=== PATIENT | male | born 1985 | race Caucasian/White ===

== ENCOUNTER 2024-03-22 04:14 | Day surgery (SDC) | payer OTHER ==
[2024-03-22] VITALS (242 sets, daily range): BP systolic 82–155; BP diastolic 41–103
[~2024-03-22] VITALS: Ht 177.8 cm; Wt 86.7 kg
--- NOTE | 2024-03-22 07:00 | NUR ---
Arrival & Pre-treatment Patient arrived to the ANR suite, identification and demographics confirmed. Patient to room 7, AAO, ambulatory, vitals obtained, ID/allergy/fall bands placed, changed into hospital gown, KELLY hose, and non-slip socks. Procedure and timeline explained for treatment and discharge. All questions answered and the patient presents no concerns at this time. V/S assessed, call light is near. Dr. Luna telephoned with patient intake information including usage, dose, last dose/time taken and initial vital signs. Patient history and allergies reviewed with MD. Orders received for 10mg PO Valium and 0.2mg PO Clonidine now. Will reassess per protocol and update MD with assessment and vitals.
[2024-03-22] MEDS ORDERED: LACTATED RINGER'S 1,000 ML IV PRN ×3 (07:30→19:00)
[2024-03-22] MEDS ORDERED: FAMOTIDINE 20 MG/TAB PO PRN (07:30)
[2024-03-22] MEDS ORDERED: diazePAM 5 MG/TAB PO PRN ×2 (07:30→08:30)
[2024-03-22] MEDS ORDERED: cloNIDine HCL 0.1 MG/TAB PO PRN (07:30)
[2024-03-22] MEDS ORDERED: CYANOCOBALAMIN 500 MCG/TAB ( B12) PO PRN (07:30)
[2024-03-22] MEDS ORDERED: ALBUTEROL SULFATE 2.5 MG VIAL IN PRN (07:30)
[2024-03-22] MEDS ORDERED: PANTOPRAZOLE SODIUM Sesquihydr 40 MG/TAB PO PRN (07:30)
[2024-03-22] MEDS ORDERED: SCOPOLAMINE 1.5 MG DIS TD PRN (07:30)
--- NOTE | 2024-03-22 07:45 | NUR ---
Patient medicated per MD orders. In addition to Clonidine and Valium, patient received 1000 mcg B12 PO, 20 mg Pepcid PO, and Scopolamine TD patch. Medication indication and education provided prior to adminstration.
[2024-03-22] MEDS ORDERED: ASCORBIC ACID 4,000 MG in SODIUM CHLORIDE 0.9% 1,000 ML IV SCH (08:00)
[2024-03-22] MEDS ORDERED: TESTOST CYP100 MG/ML IM (08:55)
--- NOTE | 2024-03-22 09:00 | NUR ---
Patient resting comfortably in bed. Easily aroused, maintains focus, and drifts back to sleep. No signs of active withdrawal or distress noted at this time. Continuous SPO2, rhythm, and respiratory monitoring initiated. IVF @ 250 mL/HR, room air, VSS.
[2024-03-22 09:44] LABS: BASO% 0.5 % (0-3); EOS% 7.3 % (0-8); HEMATOCRIT 40.9 % (39.0-50.0); LYMPH% 37.5 % (15-41); MEAN CELL VOLUME 91.7 fL CALC (80.0-100.0); MEAN CORPUSCULAR HGB 31.4 pG CALC (26.0-32.0); MEAN CORPUSCULAR HGB CONC 34.2 g/dL CAL (32.0-36.0); MONO% 9.1 % (2-13); NEUT# 2.92 thou/uL (1.82-7.42); NEUT% 45.6 % (42-76); RED BLOOD COUNT 4.46 mill/uL (4.70-6.10); RED CELL DISTRI WIDTH 12.6 % (11.5-15.5)
[2024-03-22 10:00] LABS: ALBUMIN 3.4 g/dL (3.2-5.0); BILIRUBIN, TOTAL 0.6 mg/dL (0.2-1.3); CREATININE 0.7 mg/dL (0.7-1.3); POTASSIUM 4.5 mmol/l (3.5-5.1); TOTAL PROTEIN 6.6 g/dL (6.3-8.2)
[2024-03-22] MEDS ORDERED: LIDOCAINE HCL 1% (10MG/ML) 100 MG/10 ML MDV IV PRN (10:15)
[2024-03-22] MEDS ORDERED: MAGNESIUM SULFATE HEPTAHYDRATE 100 ML IV PRN (10:15)
[2024-03-22] MEDS ORDERED: PROPOFOL 100 ML IV PRN (10:15)
[2024-03-22] MEDS ORDERED: cloNIDine HYDROCHLORIDE 100 MCG/ML 10 ML INJ IV PRN (10:15)
[2024-03-22] MEDS ORDERED: ROCURONIUM BROMIDE 10 MG/ML 5ML VIAL IV PRN (10:15)
[2024-03-22] MEDS ORDERED: OCTREOTIDE ACETATE 100 MCG/VIAL SDV SC PRN (10:15)
[2024-03-22] MEDS ORDERED: STERILE WATER FOR IRRIGATION 1,000 ML BTL IR PRN (10:15)
[2024-03-22] MEDS ORDERED: THIAMINE HCL 100 MG/ML 2ML VIAL IV PRN (10:15)
[2024-03-22] MEDS ORDERED: NALTREXONE HCL 50 MG/TAB VT PRN (10:15)
[2024-03-22] MEDS ORDERED: diazePAM 5 MG/TAB VT PRN (10:15)
[2024-03-22] MEDS ORDERED: PROPOFOL 10 MG/ML 100ML VIAL IV PRN (10:15)
[2024-03-22] MEDS ORDERED: DiphenhydrAMINE HCL 50 MG/ML SDV IV PRN (10:15)
[2024-03-22] MEDS ORDERED: DEXAMETHASONE SODIUM PHOSPHATE PF 10 MG/ML SDV IV PRN ×2 (10:15→19:00)
[2024-03-22] MEDS ORDERED: ONDANSETRON HCl 4 MG/2 ML SDV IV PRN ×3 (10:15→19:00)
[2024-03-22] MEDS ORDERED: cloNIDine HCL 0.1 MG/TAB VT PRN (10:15)
[2024-03-22] MEDS ORDERED: MIDAZOLAM HCL 2 MG/2 ML VIAL IV PRN (10:15)
[2024-03-22] MEDS ORDERED: LIDOCAINE HCL 1% (10MG/ML) 100 MG/10 ML MDV VT PRN ×2 (10:15)
[2024-03-22] MEDS ORDERED: SUCCINYLCHOLINE CHLORIDE 20 MG/ML 10ML VIAL IV PRN (10:15)
[2024-03-22] MEDS ORDERED: PHENYLEPHRINE HCL 10 MG/ML VIAL ONE (10:19)
[2024-03-22] MEDS ORDERED: SODIUM CHLORIDE 0.9% 250 ML IV ONE (10:22)
--- NOTE | 2024-03-22 10:30 | NUR ---
Patients vital signs within pre-treatment parameters for 1.5 hour recheck. No indication for additional Valium or Clonidine as patient is resting comfortably and vital signs are within range.
[2024-03-22] MEDS ORDERED: POTASSIUM CHLORIDE 10 MEQ/50 ML BAG IV PRN (10:45)
--- NOTE | 2024-03-22 10:55 | NUR ---
Induction Note Time out performed at 1050. Patient placed on monitors, Opal hugger, bilateral wrist restraints applied for ET tube protection. Versed 5mg given IV push at 1055 Tourniquet applied to RT arm Lidocaine 100mg given at 1056 IV push followed by Rocoronium 10mg at 1057 IV push and held for 90 seconds. Propofol bolus of 120mg given at 1059 IV push. Succinylcholine 80mg given IV push at 1100. Smooth intubation with 7.5 ETT. Positive CO2. Positive Auscultation for air exchange. Patient placed on ventilator for spontaneous ventilation. Placed on Propofol IV drip at 1101. OG inserted. Positive air on auscultation. Positive gastric content. Stomach washed at this time.
--- NOTE | 2024-03-22 11:15 | NUR ---
OG close note Stomach washed at this time. Naltrexone 50 mg with Clonidine 0.1 mg via OG tube. OG will be clamped for 45 minutes.
--- NOTE | 2024-03-22 12:00 | NUR ---
OG open note OG open at this time. Gastric content draining into drainage bag. OG to drain for 45 minutes. Propofol will be titrated down based on patient.
--- NOTE | 2024-03-22 12:45 | NUR ---
OG close note Stomach washed at this time. Naltrexone 50 mg with Clonidine 0.2 mg via OG tube. OG will be clamped for 45 minutes.
--- NOTE | 2024-03-22 14:15 | NUR ---
OG close note Stomach washed at this time. Naltrexone 50 mg with Clonidine 0.2 mg via OG tube. OG will be clamped for 45 minutes.
[2024-03-22] MEDS ORDERED: KLONOPIN2 MG PO (14:42)
[2024-03-22] MEDS ORDERED: CLONIDINE0.1 MG PO (14:42)
[2024-03-22] MEDS ORDERED: NALTREXONE50 MG PO (14:42)
--- NOTE | 2024-03-22 15:45 | NUR ---
OG close note Stomach washed at this time. Naltrexone 25 mg with Clonidine 0.2 mg via OG tube. OG will be clamped for 45 minutes.
--- NOTE | 2024-03-22 18:00 | NUR ---
Extubation note Closing medications given Benadryl 50mg IV push, Decadron 10mg IV push,Magnesium 4 grams IV, Zofran 8mg IV push, Octreotide 100mcg SC. Stomach washed out prior to extubation. Suctioned gastric content. OG removed. Patient extubated. Propofol Discontinued. Wrist restraints removed. Opal hugger Removed. See ANR Moderate sedate recovery record for further notes and assessment.
--- NOTE | 2024-03-22 18:25 | NUR ---
Patient's support person (SP) telephoned with update. All questions answered, no concerns presented at this time. SP agreeable to POC.
--- NOTE | 2024-03-22 18:40 | NUR ---
Transfer Note Patient transferred to medical-surgical unit private room. Report given to primary nurse at bedside. Head to toe assessment, treatment, medications, I/O, IV access reviewed with primary nurse. All questions answered. IVF to continue at 100 ml/hr, NC @ 2L, no adventitious breath sounds. Safety precautions in place, bed locked and in lowest position, call light in reach. Handoff of care complete at this time.
--- NOTE | 2024-03-22 18:52 | NUR ---
patient arrived to pr from anr; bedside report was given from naldo;blood pressure is on soft side, increased fluids; no s.s of distress ; on ; mitra hugger applied with no issues; personal items in anr locker; call light within reach; bed in lowest postion; saftey measures in place
[2024-03-22] MEDS ORDERED: PROMETHAZINE HCL 25 MG in SODIUM CHLORIDE 0.9% 50 ML IV PRN (19:00)
[2024-03-22] MEDS ORDERED: KETOROLAC TROMETHAMINE 30 MG/ML SDV IV PRN (19:00)
[2024-03-22] MEDS ORDERED: HALOPERIDOL LACTATE 5 MG/ML SDV IV PRN (19:00)
[2024-03-22] MEDS ORDERED: LORazepam 2 MG/ML IV PRN ×2 (19:00)
[2024-03-22] MEDS ORDERED: ACETAMINOPHEN 500 MG TAB PO PRN (19:00)
[2024-03-22] MEDS ORDERED: ACETAMINOPHEN 1,000 MG/100 ML VIAL IV PRN (19:00)
[2024-03-22] MEDS ORDERED: PROMETHAZINE HCL 12.5 MG in SODIUM CHLORIDE 0.9% 50 ML IV PRN (19:00)
[2024-03-22] MEDS ORDERED: PATIENT' OWN MED CONTROLLED 1 EA DOSE IV PRN (21:00)
--- NOTE | 2024-03-22 22:44 | NUR ---
ADMINISTERED SCHEDULED MEDS PER EMAR ALONG WITH MEDICATION TO HELP WITH NAUSEA. PT TOLERATED WELL. PT DENIES ANY PAIN AT THIS TIME BUT DID C/O NAUSEA AND RESTLESSNESS. INFORMED THAT MEDS GIVEN WILL HELP IMPROVE AND ECNOURAGED MORE REST TO HELP WITH RECOVERY. PT IS ALERT TO SPEECH BUT DROWSY, UNABLE TO OPEN EYES YET BUT DOES WELL FOLLOWING COMMANDS AND ABLE TO MAKE NEEDS KNOWN, HAS USED URINAL MUTIPLE TIMES WITH ASSISTANCE FORM STAFF. DID CHANGE DSG TO TLC RT FEM LINE DUE TO OLD DSG COMING OFF. ALL LUMENS FLUSH W/I DIFFICULTY, IVF RUNNING PER EMAR. PT LAYING IN BED ON LEFT SIDE, RESTING COMFORTABLY NOW, RM AIR. VSS. NO S/S OF DISTRESS. BED ALARM ON AND SAFETY PRECAUTIONS IN PLACE.
[2024-03-22] MEDS ORDERED: clonazePAM 1 MG/TAB PO PRN (23:00)
[2024-03-22] MEDS ORDERED: cloNIDine HCL 0.1 MG/TAB PO SCH (23:00)
[2024-03-23 04:00] VITALS: BP 134/67
[2024-03-23] MEDS ORDERED: cloNIDine HCL 0.1 MG/TAB PO PRN (04:00)
[2024-03-23] MEDS ORDERED: NALTREXONE HCL 50 MG/TAB PO SCH (04:00)
[2024-03-23] MEDS ORDERED: clonazePAM 1 MG/TAB PO PRN ×2 (04:00→08:00)
--- NOTE | 2024-03-23 04:07 | NUR ---
SCHEDULED MEDS ADMINISTERED. PT TOELRATED WELL. DENIES ANY N/V BUT DID C/O ALL OVER VODY ACHES. ADMININSTERED MEDICATION FOR PAIN PER EMAR. PT IS A/OX2 TO SELF AND PLACE, ABLE TO VOICE NEEDS AND FOLLOW COMMANDS. VSS. NO S/S OF DISTRESS. IVF RUNNING PER EMAR. BED ALARM ON AND SAFETY PRECAUTIONS IN PLACE.
[2024-03-23 05:12] LABS: HEMATOCRIT 39.1 % (39.0-50.0); HEMOGLOBIN 13.5 g/dl (14.0-18.0); IMMATURE GRANULOCYTES 0.2 % (0.0-5.0); LYMPH% 10.5 % (15-41); MEAN CELL VOLUME 90.1 fL CALC (80.0-100.0); MEAN CORPUSCULAR HGB 31.1 pG CALC (26.0-32.0); MEAN CORPUSCULAR HGB CONC 34.5 g/dL CAL (32.0-36.0); MONO% 2.1 % (2-13); NEUT# 8.04 thou/uL (1.82-7.42); NEUT% 87.2 % (42-76); RED BLOOD COUNT 4.34 mill/uL (4.70-6.10); RED CELL DISTRI WIDTH 12.4 % (11.5-15.5)
[2024-03-23 05:24] LABS: ALBUMIN 3.7 g/dL (3.2-5.0); BILIRUBIN, TOTAL 0.7 mg/dL (0.2-1.3); CREATININE 0.8 mg/dL (0.7-1.3); MAGNESIUM 2.1 mg/dL (1.6-2.3)
[2024-03-23] MEDS ORDERED: ACETAMINOPHEN 325 MG/TAB PO SCH (08:00)
[2024-03-23] MEDS ORDERED: PANTOPRAZOLE SODIUM Sesquihydr 40 MG/TAB PO SCH (08:00)
[2024-03-23] MEDS ORDERED: cloNIDine HCL 0.1 MG/TAB PO SCH (08:00)
[2024-03-23 08:14] VITALS: BP 121/71
--- NOTE | 2024-03-23 08:34 | NUR ---
patient a/o x2; roomair; breathing unlabored and even; toelrated his medication; encouraged to eat breakfast; iv site clean and intact running with LR @100; no s.s of distress at this time; labs and patient status called to provider; POC was reviewed; call light within reachl bed in lowest postion; saftey measures in place; writter in door way; bed alarm actiavted
[2024-03-23] MEDS ORDERED: MAGNESIUM OXIDE 400 MG/TAB PO PRN (09:00)
[2024-03-23] MEDS ORDERED: ACETAMINOPHEN 500 MG TAB PO PRN (09:00)
[2024-03-23] MEDS ORDERED: Cholecalciferol 2,000 UNIT/TAB PO PRN (09:00)
--- NOTE | 2024-03-23 11:53 | NUR ---
patient is in [facility] shower at thistime; no issues; will complete walk after shower; no complaints
--- NOTE | 2024-03-23 12:10 | NUR ---
patient ambulated down hallway with stand by assit
--- NOTE | 2024-03-23 14:20 | NUR ---
IV site discontinued, cath intact. No edema , no redness, voices no discomfort. Discharge instructions given. Patient verbalizes understanding of same. Discharged in stable condition via Ambulatory to Home with family. All belongings sent with pt.
== END 2024-03-23 14:19 | disposition home or self-care (01) | DRG 897 ==
LOC: ANR 04:14 → MS2 04:14 → ANR 07:00 → MS2 17:53 → ANR 03-23 14:19
PROVIDERS: ATTEND Anesthesiology
DX: F11.20 Opioid dependence, uncomplicated (principal)
CPT/HCPCS: J1100; J1200; J1630; J2060; J2354; J2405; J2704; J3411; J3475; J3490